=== PATIENT | male | born 1990 | race Caucasian/White ===

== ENCOUNTER 2017-12-04 18:34 | Inpatient (IN) | payer BC, OTHER ==
[~2017-12-04] VITALS: Ht 180.3 cm; Wt 72.6 kg
[2017-12-05] MEDS ORDERED: MAGNESIUM HYDROXIDE 30 ML LIQUID UDC PO PRN (01:15)
[2017-12-05] MEDS ORDERED: MAG HYDROX/AL HYDROX/SIMETH 30 ML LIQUID UDC PO PRN (01:15)
[2017-12-05] MEDS ORDERED: HYDROXYZINE PAMOATE 25 MG CAPSULE PO PRN (01:15)
[2017-12-05] MEDS ORDERED: ACETAMINOPHEN 325 MG TABLET PO PRN (01:15)
[2017-12-05] MEDS ORDERED: LOPERAMIDE HCL 2 MG CAPSULE PO PRN ×2 (01:15)
[2017-12-05] MEDS ORDERED: diphenhydrAMINE 50 MG CAPSULE PO PRN (01:15)
[2017-12-05] MEDS ORDERED: LORAZEPAM 1 MG TABLET PO PRN ×2 (01:15→12:00)
[2017-12-05] MEDS ORDERED: ONDANSETRON 4 MG/2 ML VIAL IM PRN (01:15)
[2017-12-05] MEDS ORDERED: ONDANSETRON ODT 4 MG TAB.RAPDIS SL PRN (01:15)
[2017-12-05] MEDS ORDERED: MIRALAX 17 GM POWD.PACK PO PRN (01:15)
[2017-12-05 01:45] LABS: BASOPHILS % (AUTO) 0.8 % (0.0-2.0); EOSINOPHILS # (AUTO) 0.1 K/uL (0.0-0.7); EOSINOPHILS % (AUTO) 2.7 % (0.0-7.0); HEMATOCRIT 36.6 % (36.7-47.1); LYMPHOCYTES % (AUTO) 37.7 % (20.5-51.5); MEAN CORPUSCULAR HEMOGLOBIN 27.9 uug (23.8-33.4); MEAN CORPUSCULAR HGB CONC 36 g/dL (32.5-36.3); MEAN CORPUSCULAR VOLUME 78.3 fL (73.0-96.2); MONOCYTES # (AUTO) 0.5 K/uL (2.0-10.0); MONOCYTES % (AUTO) 9.1 % (0.0-11.0); NEUTROPHILS # (AUTO) 2.6 K/uL (1.8-8.9); NEUTROPHILS % (AUTO) 49.7 % (38.5-71.5); PLATELET COUNT (AUTO) 183 K/uL (152-348); RED BLOOD CELL COUNT(AUTO) 4.68 MIL/uL (4.06-5.63); WHITE BLOOD COUNT (AUTO) 5.3 K/uL (3.6-10.2)
[2017-12-05 01:50] LABS: ETHANOL < 3 MG/DL (0-0)
[2017-12-05 01:52] LABS: ALANINE AMINOTRANSFERASE 21 U/L (16-63); ALKALINE PHOSPHATASE 120 U/L (50-136); AMYLASE 41 U/L (25-115); ASPARTATE AMINOTRANSFERASE 11 U/L (15-37); BILIRUBIN,TOTAL 0.3 mg/dL (0.2-1.0); CARBON DIOXIDE 27 mmol/L (21-32); CHLORIDE 103 mmol/L (98-107); CREATININE 1.1 mg/dL (0.6-1.3); GLUCOSE 76 mg/dL (74-106); LIPASE 120 U/L (73-393); MAGNESIUM 1.8 mg/dL (1.8-2.4); POTASSIUM 3.9 mmol/L (3.5-5.1); TOTAL PROTEIN, SERUM 7.7 g/dL (6.4-8.2); UREA NITROGEN, BLOOD 18 mg/dL (7-18)
[2017-12-05 02:22] LABS: *AMPHETAMINE, URINE POSITIVE (NEGATIVE); *BARBITURATE, URINE NEGATIVE (NEGATIVE); *CANNABINOID, URINE NEGATIVE (NEGATIVE); *COCCAINE, URINE NEGATIVE (NEGATIVE); *OPIATE, URINE POSITIVE (NEGATIVE); *PHENCYCLIDINE SCREEN,URINE NEGATIVE (NEGATIVE)
[2017-12-05 08:00] VITALS: BP 111/67
[2017-12-05] MEDS: MULTIVITAMINS,THERAPEUTIC TABLET PO SCH (08:48)
[2017-12-05] MEDS: METHOCARBAMOL 750 MG TABLET PO PRN ×2 (08:48→20:10)
[2017-12-05] MEDS: CLONIDINE HCL 0.1 MG TABLET PO PRN ×2 (08:49→14:26)
[2017-12-05] MEDS: BUPRENORPHINE HCL 2 MG TAB.SUBL SL PRN (08:49)
[2017-12-05 12:00] VITALS: BP 128/66
[2017-12-05] MEDS ORDERED: LORAZEPAM 2 MG/1 ML VIAL IM PRN (12:00)
[2017-12-05] MEDS: BUPRENORPHINE HCL 2 MG TAB.SUBL SL SCH ×2 (14:19→20:11)
[2017-12-05] MEDS: LORAZEPAM 1 MG TABLET PO PRN (14:26)
[2017-12-05] MEDS ORDERED: GABAPENTIN 300 MG CAPSULE PO ONE (15:00)
[2017-12-05 16:00] VITALS: BP 118/76
[2017-12-05] MEDS: LORAZEPAM 1 MG TABLET PO SCH ×2 (16:43→20:10)
[2017-12-05 20:00] VITALS: BP 131/87
[2017-12-05] MEDS: GABAPENTIN 300 MG CAPSULE PO SCH (20:10)
[2017-12-06] VITALS: BP 141/73
[2017-12-06 04:00] VITALS: BP 139/76
[2017-12-06] MEDS: METHOCARBAMOL 750 MG TABLET PO PRN (04:56)
[2017-12-06] MEDS: IBUPROFEN 600 MG TABLET PO PRN ×2 (04:56→20:20)
[2017-12-06] MEDS: LORAZEPAM 1 MG TABLET PO PRN ×2 (05:32→09:08)
[2017-12-06] MEDS: BUPRENORPHINE HCL 2 MG TAB.SUBL SL PRN (05:33)
[2017-12-06 08:05] VITALS: BP 145/81
[2017-12-06] MEDS ORDERED: BUPRENORPHINE HCL 2 MG TAB.SUBL SL SCH (09:00)
[2017-12-06] MEDS ORDERED: TUBERCULIN,PURIF.PROT.DERIV. 5 TU/0.1 ML TEST ID ONE (09:00)
[2017-12-06] MEDS: GABAPENTIN 300 MG CAPSULE PO SCH ×3 (09:07→20:19)
[2017-12-06] MEDS: CLONIDINE HCL 0.1 MG TABLET PO PRN (09:08)
[2017-12-06] MEDS: MULTIVITAMINS,THERAPEUTIC TABLET PO SCH (09:08)
[2017-12-06 12:06] LABS: HEPATITIS B SURFACE AG Negative (Negative)
[2017-12-06 12:55] VITALS: BP 122/68
[2017-12-06] MEDS ORDERED: KETOROLAC TROMETHAMINE 30 MG INJ IM PRN (14:00)
[2017-12-06] MEDS: LORAZEPAM 1 MG TABLET PO SCH ×2 (14:52→20:18)
[2017-12-06] MEDS: BUPRENORPHINE HCL 2 MG TAB.SUBL SL SCH ×2 (14:53→20:21)
[2017-12-06 16:51] VITALS: BP 124/79
[2017-12-06 20:00] VITALS: BP 130/73
[2017-12-06] MEDS: CLONIDINE HCL 0.1 MG TABLET PO SCH (20:18)
[2017-12-06] MEDS: BACLOFEN 10 MG TABLET PO SCH (20:19)
[2017-12-07] VITALS: BP 103/52
[2017-12-07 04:00] VITALS: BP 123/74
[2017-12-07 08:00] VITALS: BP 124/91
[2017-12-07] MEDS: MULTIVITAMINS,THERAPEUTIC TABLET PO SCH (08:34)
[2017-12-07] MEDS: BACLOFEN 10 MG TABLET PO SCH ×3 (08:34→20:56)
[2017-12-07] MEDS: GABAPENTIN 300 MG CAPSULE PO SCH ×3 (08:34→20:57)
[2017-12-07] MEDS: BUPRENORPHINE HCL 2 MG TAB.SUBL SL SCH ×3 (08:34→20:58)
[2017-12-07] MEDS: CLONIDINE HCL 0.1 MG TABLET PO SCH ×3 (08:34→20:57)
[2017-12-07] MEDS ORDERED: LORAZEPAM 1 MG TABLET PO SCH ×3 (09:00→21:00)
[2017-12-07 12:00] VITALS: BP 126/69
[2017-12-07 16:00] VITALS: BP 130/72
[2017-12-07 20:00] VITALS: BP 133/68
[2017-12-07] MEDS: TRAZODONE 50 MG TABLET PO PRN (20:56)
[2017-12-08 08:00] VITALS: BP 130/73
[2017-12-08] MEDS: CLONIDINE HCL 0.1 MG TABLET PO SCH ×2 (09:03→14:34)
[2017-12-08] MEDS: BACLOFEN 10 MG TABLET PO SCH ×3 (09:03→20:45)
[2017-12-08] MEDS: BUPRENORPHINE HCL 2 MG TAB.SUBL SL SCH ×2 (09:03→20:47)
[2017-12-08] MEDS: MULTIVITAMINS,THERAPEUTIC TABLET PO SCH (09:03)
[2017-12-08] MEDS: GABAPENTIN 300 MG CAPSULE PO SCH ×3 (09:03→20:45)
[2017-12-08] MEDS: LORAZEPAM 1 MG TABLET PO SCH ×2 (09:04→20:45)
[2017-12-08 12:00] VITALS: BP 122/59
[2017-12-08 16:00] VITALS: BP 107/47
[2017-12-08 20:00] VITALS: BP 131/81
[2017-12-08] MEDS: CLONIDINE HCL 0.2 MG TABLET PO SCH (20:46)
[2017-12-08] MEDS ORDERED: QUETIAPINE FUMARATE 100 MG TABLET PO ONE (21:45)
[2017-12-09 08:00] VITALS: BP 133/65
[2017-12-09] MEDS: BACLOFEN 10 MG TABLET PO SCH ×3 (08:35→21:07)
[2017-12-09] MEDS: MULTIVITAMINS,THERAPEUTIC TABLET PO SCH (08:35)
[2017-12-09] MEDS: GABAPENTIN 300 MG CAPSULE PO SCH ×3 (08:35→21:05)
[2017-12-09] MEDS: CLONIDINE HCL 0.1 MG TABLET PO SCH ×2 (08:35→14:29)
[2017-12-09] MEDS ORDERED: BUPRENORPHINE HCL 2 MG TAB.SUBL SL SCH (09:00)
[2017-12-09] MEDS ORDERED: LORAZEPAM 1 MG TABLET PO SCH (09:00)
[2017-12-09 12:00] VITALS: BP 124/74
[2017-12-09 16:00] VITALS: BP 103/64
[2017-12-09] MEDS ORDERED: HYDR-3895 PO (18:02)
[2017-12-09] MEDS ORDERED: CLON0.1T14 PO (18:02)
[2017-12-09] MEDS ORDERED: METH-406 PO (18:02)
[2017-12-09] MEDS ORDERED: TRAZ-144 PO (18:02)
[2017-12-09] MEDS ORDERED: GABA-534 PO ×2 (18:02)
[2017-12-09] MEDS ORDERED: IBUP-1955 PO (18:02)
[2017-12-09 20:00] VITALS: BP 140/85
[2017-12-09] MEDS: CLONIDINE HCL 0.2 MG TABLET PO SCH (21:06)
[2017-12-09] MEDS: TRAZODONE 50 MG TABLET PO PRN (21:07)
[2017-12-10 08:00] VITALS: BP 144/82
[2017-12-10 08:23] VITALS: BP 144/82
[2017-12-10] MEDS: MULTIVITAMINS,THERAPEUTIC TABLET PO SCH (08:23)
[2017-12-10] MEDS: CLONIDINE HCL 0.1 MG TABLET PO SCH (08:23)
[2017-12-10] MEDS: GABAPENTIN 300 MG CAPSULE PO SCH (08:23)
[2017-12-10] MEDS: BACLOFEN 10 MG TABLET PO SCH (08:23)
== END 2017-12-10 09:25 | disposition home or self-care (01) | DRG 895 ==
LOC: SRC 12-05 00:36
PROVIDERS: ADMIT Internal Medicine; ATTEND Internal Medicine
PROC: HZ2ZZZZ Detoxification Services for Substance Abuse Treatment (ICD-10-PCS; principal; 2017-12-05)
PROC: HZ41ZZZ Group Counseling for Substance Abuse Treatment, Behavioral (ICD-10-PCS; 2017-12-09)
DX: F11.23 Opioid dependence with withdrawal (principal); I15.9 Secondary hypertension, unspecified; F15.20 Other stimulant dependence, uncomplicated; F13.230 Sedative, hypnotic or anxiolytic dependence with withdrawal, uncomplicated; F17.210 Nicotine dependence, cigarettes, uncomplicated; Z59.1 Inadequate housing; Z59.0 Homelessness; Z81.1 Family history of alcohol abuse and dependence; Z91.89 Other specified personal risk factors, not elsewhere classified
CPT/HCPCS: 36415; 70030-TC; 80307; 80324; 80346; 80361; 83690; 83735; 84443; 85025; 86580; 86592; 86705; 86803; 87340; 87806; G0480; Q0162; Q0163